=== PATIENT | male | born 1950 | race Caucasian/White ===

== ENCOUNTER → 2017-09-25 14:03 | Outpatient (CLI) | payer BC, SELFPAY ==
[2017-09-25 15:15] LABS: Hemoglobin A1C 8.3 % (4.5-6.2)
[2017-09-25 17:28] LABS: Cholesterol 100 mg/dL (50-200); HDL Cholesterol 41 mg/dL (40-60); LDL CHOLESTEROL 52 mg/dL (<100); TSH (W/Ref FT4) 2.77 uIU/mL (0.358-3.74); Triglyceride 51 mg/dL (30-150)
[2017-09-25 18:35] LABS: COMMENT (LAB VIEW ONLY) 90.34 mg/dL; Microalb ug/mg Crea 100.3 ug/mg Cr
== END ==
PROVIDERS: PCP Family Medicine; Visit Provider Family Medicine
DX: E10.65 Type 1 diabetes mellitus with hyperglycemia (principal); E10.8 Type 1 diabetes mellitus with unspecified complications; I10 Essential (primary) hypertension
CPT/HCPCS: 36415; 80061; 83721; 82043; 82570; 83036; 84443

== ENCOUNTER 2017-12-06 07:09 | Outpatient (CLI) | payer BC, SELFPAY ==
[2017-12-06 16:05] LABS: Cholesterol 102 mg/dL (50-200); HDL Cholesterol 39 mg/dL (40-60); LDL CHOLESTEROL 52 mg/dL (<100); Triglyceride 91 mg/dL (30-150)
== END 2017-12-06 07:29 ==
PROVIDERS: PCP Family Medicine; Visit Provider Family Medicine
DX: E10.65 Type 1 diabetes mellitus with hyperglycemia (principal); E78.5 Hyperlipidemia, unspecified
CPT/HCPCS: 36415; 80061; 83721; 83036

== ENCOUNTER 2018-03-28 14:25 | Emergency (ER) | payer BC, SELFPAY ==
[2018-03-28] VITALS (7 sets, daily range): BP systolic 139–164; BP diastolic 69–77; PULSE 79–98; RESP 16–18; TEMP 37.1–37.5; O2SAT 89–95
--- NOTE | 2018-03-28 15:04 | W.ED.GENAD ---
Discharge Plan Disposition Patient Disposition: HOME Condition: Good Discharge Details Chief Complaint: RespSymp Clinical Impression: Pneumonia Reason For Visit: cough after tx with tal coronel Primary Care Provider: Nelly Wilkins ED Provider: Hoang Tate Home Meds and New Rx's Prescriptions: New albuterol sulfate 90 mcg/actuation HFA aerosol inhaler 2 puff IH Q6H PRN (Reason: bronchospasm) Qty: 8 RF: 0 doxycycline hyclate 100 mg tablet 100 mg PO BID Qty: 20 RF: 0 No Action Humalog KwikPen Insulin 100 unit/mL insulin pen See Patient Comments subcut QPM RF: 0 aspirin [Aspirin Low-Strength] 81 MG tablet,chewable 1 tab PO DAILY RF: 0 acetaminophen 500 MG tablet 2 tab PO DAILY PRNRF: 0 pen needle, diabetic 1 EACH needle 1 ea Miscellaneous QID Qty: 360 RF: 12 desonide [DesOwen] 60 GM cream 1 aden Topical BID Qty: 60 RF: 12 ketoconazole 15 GM cream 2 - 4 gm Topical BID PRNQty: 1 RF: 3 syringe with cannula,disposabl [BD Blunt Plastic Cannula] 1 EACH syringe 1 ea Miscellaneous AC & HS Qty: 360 RF: 12 sildenafil [Viagra] 100 MG tablet 1 tab PO DAILY PRNQty: 24 RF: 12 lisinopril 5 MG tablet 1 tab PO DAILY Qty: 90 RF: 12 Humalog Mix 75-25 KwikPen 100 UNIT/1 ML insulin pen 50 units Sub-Q QAM Qty: 15 RF: 12 ONETOUCH ULTRA TEST STRIPS strip .ROUTE .MEDSUPPLY Qty: 1 RF: 12 blood-glucose meter misc .Route .MEDSUPPLY Qty: 1 RF: 0 blood-glucose sensor device .ROUTE .MEDSUPPLY Qty: 3 RF: 0 atorvastatin 40 mg tablet 40 mg PO DAILY Qty: 90 RF: 11 Lantus Solostar U-100 Insulin 100 unit/mL (3 mL) insulin pen 35 unit subcut BID Qty: 100 RF: 12 tamsulosin 0.4 mg capsule 0.4 mg PO DAILY Qty: 90 RF: 4 OneTouch Ultra Blue Test Strip strip .ROUTE .MEDSUPPLY Qty: 200 RF: 5 Discharge Instructions Instructions: Pneumonia (ED) Additional Instructions: Please take medication as directed. if you notice any worsening of your symptoms, or any new symptoms such as vomiting, diarrhea, fever, chills, shortness of breath, chest pain, numbness, weakness, or fainting , please return immediately to the emergency department for reevaluation. Please follow up with your primary care provider as soon as possible for reassessment and reevaluation. As always, it was a pleasure participating in your medical care today. Referrals: Nelly Wilkins MD, [place] [Primary Care Provider] - Discharge Data Discharge Date/Time-TO BE ENTERED AT DEPARTURE: 03/28/18 19:00 Medical Decision Making This is a pleasant 67-year-old male who presents for persistent cough over the last month. It is been productive with yellow sputum. He was recently started on azithromycin over a week ago and completed his course of this, unfortunately he had persistence of his symptoms. He denies any significant shortness of breath, exertional chest pain, or pleuritic chest pain. He does have mild pain occasionally with cough. No red flags of history of PE, or hemoptysis. Physical exam demonstrates minimal crackles in the right upper lung darling, however no calf tenderness, no wheezes or rhonchi, or other significant abnormalities. Vital signs are reassuring, and we did ambulate the patient. With ambulation his oxygen saturation maintained greater than 94%, there are no significant cardiac abnormalities otherwise. We will get a chest x-ray, and EKG, give the patient a breathing treatment and reassess. I do feel that he may require a change to a different broader antibiotic. 10:42 PM Patient's laboratory workup has returned demonstrates minimal white count elevation, no bandemia, electrolytes are benign. Renal function stable. Troponin within normal limits. EKG shows no significant acute findings. Chest x-ray does show evidence concerning for pneumonia. After breathing treatments patient is feeling somewhat better. Repeat ambulatory pulse ox continues to demonstrate normal oxygen saturations. With reassuring vital signs, no significant tachycardia, signs and symptoms clinically inconsistent with ACS, PE, dissection, I feel that his signs and symptoms are consistent with pneumonia especially in light of his chest x-ray. We will broaden his coverage to doxycycline, and hold off on floor quinolone use at this time secondary to his active lifestyle, and concern for tendon damage. We will give an inhaler for home use as this did notably and help his symptoms. I see no clinical indication at this time for admission to the hospital, and I feel he is safe for treatment on an outpatient basis. However we did discuss reasons to return promptly for I have extensively reviewed the treatment plan and discharge instructions with the patient and their family. I have addressed all patient concerns at this time. The patient and family was made aware of what symptoms to monitor for that would warrant a return to the emergency department. Discussed the plan with the patient and family, they demonstrate verbal understanding and agreement with our assessment and plan at this time. EKG 15: 40 Rate 109, sinus tachycardia, intervals normal, no significant ST elevations or depressions. There is evidence of Q waves in lead II, III, and aVF, however review of prior EKG from 2005 demonstrates the same and unchanged findings HPI General Date/Time Provider Initiated Documentation: 03/28/18 14:37. HPI Narrative: This is a pleasant 67-year-old male with a past medical history of diabetes, who presents today for evaluation of cough. He initially developed a cough 1 month ago, and was prescribed azithromycin roughly a week ago. He took this as directed but has had no improvement of his symptoms. He still has continued cough with productive yellow sputum. It slightly worsened yesterday. He does have a history of tobacco abuse in the past but quit years ago. He denies any chest pressure, arm neck or shoulder pain. He does admit to some mild chest pain only when coughing. He denies any pleuritic chest pain. Denies PE risk factors such as recent long car rides, immobilization, recent surgery, prior history of DVT or PE, family history of PE or DVT, morbid obesity, exogenous estrogen and smoking, hemoptysis, history of cancer. He denies any recent hospitalization, or other complaints. He denies any IV or illicit drug use. He denies any pertinent family history. Related Data Home Medications Medication Instructions Recorded Confirmed aspirin [Aspirin Low-Strength] 1 tab PO DAILY tab.chew 06/06/12 03/28/18 acetaminophen 2 tab PO DAILY PRN 06/14/12 03/28/18 pen needle, diabetic #360 ndl 07/30/14 01/02/18 desonide [DesOwen] 1 aden TOPICAL BID #60 gm 09/09/14 03/28/18 ketoconazole 2 - 4 gm TOPICAL BID PRN #1 tube 10/15/15 03/28/18 syringe with cannula,disposabl [BD #360 syringe 11/03/16 01/02/18 Blunt Plastic Cannula] sildenafil [Viagra] 1 tab PO DAILY PRN #24 tab-cap 11/15/16 03/28/18 lisinopril 1 tab PO DAILY #90 tab-cap 09/26/17 03/28/18 insulin lispro protamin-lispro 50 units SUB-Q QAM #15 pen 09/29/17 03/28/18 [Humalog Mix 75-25 Kwikpen] blood-glucose meter #1 each NS 12/10/17 01/02/18 blood-glucose sensor device #3 each NS 12/10/17 01/02/18 atorvastatin 40 mg tablet 40 mg PO DAILY #90 tab-cap 12/19/17 03/28/18 insulin lispro (U- 100) 100 See Rx Instructions SUBCUT QPM box 01/02/18 03/28/18 unit/mL subcutaneous pen insulin glargine (U-100) 100 35 unit SUBCUT BID #100 ml 01/04/18 03/28/18 unit/mL (3 mL) subcutaneous pen tamsulosin 0.4 mg capsule 0.4 mg PO DAILY #90 cap 02/02/18 03/28/18 blood sugar diagnostic strips #200 each 03/22/18 albuterol sulfate 2 puff IH Q6H PRN #8 gm 03/28/18 doxycycline hyclate 100 mg PO BID #20 tab 03/28/18 Previous Rx's Medication Instructions Recorded syringe with cannula,disposabl [BD #360 syringe 11/03/16 Blunt Plastic Cannula] lisinopril 1 tab PO DAILY #90 tab-cap 09/26/17 insulin lispro protamin-lispro 50 units SUB-Q QAM #15 pen 09/29/17 [Humalog Mix 75-25 Kwikpen] blood-glucose meter #1 each NS 12/10/17 blood-glucose sensor device #3 each NS 12/10/17 atorvastatin 40 mg tablet 40 mg PO DAILY #90 tab-cap 12/19/17 insulin glargine (U-100) 100 35 unit SUBCUT BID #100 ml 01/04/18 unit/mL (3 mL) subcutaneous pen tamsulosin 0.4 mg capsule 0.4 mg PO DAILY #90 cap 02/02/18 blood sugar diagnostic strips #200 each 03/22/18 albuterol sulfate 2 puff IH Q6H PRN #8 gm 03/28/18 doxycycline hyclate 100 mg PO BID #20 tab 03/28/18 Allergies Allergy/AdvReac Type Severity Reaction Status Date / Time No Known Allergies Allergy Unverified 03/28/18 14:37 General Stated Complaint: RespSymp JUAN: 3 Review of Systems Review of Systems All systems reviewed & are unremarkable except as noted in HPI and below PFSH Medical History Essential hypertension (Chronic 01/04/13) 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 Father No problems noted. Sister No problems noted. Brother Aneurysm Neoplasm Brother No problems noted. Brother No problems noted. Brother No problems noted. Grandfather No problems noted. Grandfather Heart disease Grandmother No problems noted. Grandmother No problems noted. Son No problems noted. Son No problems noted. Daughter No problems noted. Social History Smoking/Tobacco Use Status: Former Tobacco Use Exam Narrative Exam Narrative: 1.Const: Well-nourished, Well-developed, appearing stated age 2.Eyes: PERRL, no conjunctival injection, and symmetrical lids. 3.ENT: Atraumatic external nose and ears. Moist MM. Neck: Symmetric, trachea midline, No thyromegaly. 4.CVS: +S1/S2, No murmurs or gallops. Peripheral pulses 2+ and equal in all extremities. Brisk capillary refill in all extremities. 5.RESP: Unlabored respiratory effort. Clear to auscultation bilaterally except for a minimal crackle in the right upper lung field. No rhonchi or wheezes. 6.GI: Soft, Nontender/Nondistended, No hepatosplenomegaly. No guarding or rebound. 7.MSK: Normocephalic/Atraumatic, Extremities w/o deformity or ttp No cyanosis or clubbing, Normal movement of all extremities 8.Skin: Warm, Dry. No rashes or lesions. 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 Sensation grossly intact, no focal neurologic deficits. 10.Psych: (AAO) x3. Appropriate mood and affect Course Vital Signs Temperature 37.2 C 03/28/18 14:31 Pulse 90 03/28/18 14:31 Respiratory Rate 18 03/28/18 14:31 Blood Pressure 164/69 H 03/28/18 14:31 Pulse Oximetry 93 L 03/28/18 14:31 Temperature 37.2 C 03/28/18 14:31 Pulse 90 03/28/18 14:31 Respiratory Rate 18 03/28/18 14:31 Respiratory Effort 03/28/18 14:36 Blood Pressure 164/69 H 03/28/18 14:31 Pulse Oximetry 93 L 03/28/18 14:31 Oxygen Delivery Method Room Air 03/28/18 14:31 Oxygen Flow Rate 0 03/28/18 14:31 Comment 03/28/18 14:31
[2018-03-28] MEDS: Albuterol/Ipratropium 3 ML UPD VIAL UPD (15:10)
--- NOTE | 2018-03-28 16:22 | DI.RAD_ITS ---
SYMPTOMS/DIAGNOSIS: COUGH X 1 MONTH WITH PRODUCTIVE SPUTUM PA AND LATERAL CHEST: There are no prior comparison exams. The heart size is normal. The aorta is tortuous but normal in diameter. The lungs are suboptimally inflated, particularly on the lateral view. There is basilar atelectasis. No focal infiltrate is identified. IMPRESSION: Limited exam. No acute abnormality.
--- NOTE | 2018-03-28 16:27 | DI.VRAD_ITS ---
EXAM: XR Chest, 2 Views EXAM DATE/TIME: 03/28/2018 4:20 PM CLINICAL HISTORY: 67 years old, male; Signs and symptoms; Cough; Patient HX: 1 month cough w/prod sputum TECHNIQUE: XR of the chest, 2 views. COMPARISON: No relevant prior studies available. FINDINGS: Minimal patchy density within the left lung base consistent with small pneumonia given the proper clinical setting. Follow-up imaging until resolution of this abnormality is recommended as clinically warranted. The right lung is clear. The cardiomediastinal silhouette and pulmonary vasculature are within normal limits. No pleural effusion or pneumothorax identified. There are degenerative changes throughout the thoracic spine. IMPRESSION: Patchy density in the left lower lobe consistent with small pneumonia given the proper clinical setting. Follow-up imaging until resolution of this abnormality is recommended as clinically warranted. Dictated and Authenticated by: Chris Mac MD. Ordering:HANNA Bolton MD
[2018-03-28] MEDS: Acetaminophen 500 MG TAB (16:40)
[2018-03-28 17:27] LABS: Abs Immature Grans 0.03 k/cumm (0.0-0.09); Absolute Basophil Count 0.01 k/cumm (0.0-0.2); Absolute Eosinophil Count 0.01 k/cumm (0.0-0.7); Absolute Lymphocyte Count 0.64 k/cumm (1.2-3.4); Absolute Monocyte Count 0.98 k/cumm (0.11-0.7); Basophils % 0.1; Eosinophils % 0.1; HCT 48.5 % (40.0-50.0); HGB 16.2 g/dL (13.5-17.5); Immature Grans % 0.2; Lymphocytes % 4.9; Mean Corp. HGB Concentration 33.4 g/dL (32.0-36.0); Mean Corpuscular Hemoglobin 28.4 pg (27.0-33.0); Mean Corpuscular Volume 85.1 fL (80-95); Monocytes % 7.5; Neutrophils % 87.2; Platelet Count 161 x1000/uL (130-400); RBC Distribution Width 12.7 % (11.8-14.1)
[2018-03-28 17:29] LABS: Absolute Neutrophil Count 11.34 k/cumm (1.2-6.7)
[2018-03-28 17:43] LABS: ALT 24 U/L (12-78); AST 22 U/L (15-37); Albumin 3.3 g/dL (3.4-5.0); Alkaline Phosphatase 128 U/L (46-116); Anion Gap 9.9 mmol/L (3-11); BUN 18 mg/dL (7-18); Bilirubin, Total 1.3 mg/dL (0.2-1.0); CO2 25.1 mmol/L (21.0-32.0); Calcium 8.4 mg/dL (8.5-10.1); Chloride 97 mmol/L (98-107); Estimated GFR 54.73 (mL/min/1.73m2); Glucose 412 mg/dL (70-100); Potassium 4.7 mmol/L (3.5-5.1); Sodium 132 mmol/L (136-145); Total Protein 6.9 g/dL (6.4-8.2); Troponin I 0.03 ng/mL (0.00-0.06)
== END 2018-03-28 19:00 | disposition home or self-care (01) ==
PROVIDERS: Emergency Provider Student in an Organized Health Care Education/Training Program; PCP Family Medicine
DX: J18.9 Pneumonia, unspecified organism (principal); R00.0 Tachycardia, unspecified; Z87.891 Personal history of nicotine dependence
CPT/HCPCS: 36415; 36416; 80053; 82962; 87449; 93005; 94640; 99285; 71046; 84484; 85025; 93010; J7620

== ENCOUNTER 2018-04-06 11:59 | Outpatient (CLI) | payer BC, SELFPAY ==
[2018-04-06 14:09] LABS: Hemoglobin A1C 9.1 % (4.5-6.2)
== END 2018-04-06 12:19 ==
PROVIDERS: PCP Family Medicine; Visit Provider Family Medicine
DX: E10.65 Type 1 diabetes mellitus with hyperglycemia (principal)
CPT/HCPCS: 36415; 83036

== ENCOUNTER 2018-10-01 01:24 | Outpatient (CLI) | payer BC, MEDICARE, SELFPAY | END 2018-10-01 01:44 | PROVIDERS: PCP Family Medicine; Visit Provider Family Medicine | DX: E10.65 Type 1 diabetes mellitus with hyperglycemia (principal) | CPT/HCPCS: 36415; 83036 ==

== ENCOUNTER 2019-01-22 10:37 | Outpatient (CLI) | payer BC, SELFPAY ==
[2019-01-22 16:41] LABS: Hemoglobin A1C 9.5 % (4.5-6.2)
== END 2019-01-22 10:57 ==
PROVIDERS: PCP Family Medicine; Visit Provider Family Medicine
DX: E11.9 Type 2 diabetes mellitus without complications (principal)
CPT/HCPCS: 36415; 83036

== ENCOUNTER 2019-10-21 04:45 | Outpatient (CLI) | payer BC, SELFPAY ==
[2019-10-21 08:35] LABS: Hemoglobin A1C 9.2 % (<5.7)
[2019-10-21 08:48] LABS: ALT 25 U/L (16-63); AST 20 U/L (15-37); Albumin 3.7 g/dL (3.4-5.0); Alkaline Phosphatase 122 U/L (46-116); Anion Gap 8.5 mmol/L (3-11); BUN 20 mg/dL (7-18); Bilirubin, Total 1.2 mg/dL (0.2-1.0); CO2 26.5 mmol/L (21.0-32.0); CREATININE 1.19 mg/dL (0.70-1.30); Calcium 8.6 mg/dL (8.5-10.1); Calculated LDL 52 mg/dL (<100); Chloride 106 mmol/L (98-107); Cholesterol 111 mg/dL (<200); Glucose 195 mg/dL (74-106); HDL Cholesterol 44 mg/dL (40-60); Potassium 4.7 mmol/L (3.5-5.1); Sodium 141 mmol/L (136-145); Total Protein 6.4 g/dL (6.4-8.2); Triglyceride 76 mg/dL (<150)
[2019-10-21 18:28] LABS: COMMENT (LAB VIEW ONLY) 118.21 mg/dL
[2019-10-21 18:31] LABS: Microalb ug/mg Crea 119.6 ug/mg Cr
== END 2019-10-21 05:05 ==
PROVIDERS: PCP Family Medicine; Visit Provider Family Medicine
DX: E11.9 Type 2 diabetes mellitus without complications (principal)
CPT/HCPCS: 36415; 80053; 80061; 82043; 82570; 83036

== ENCOUNTER 2020-01-21 03:53 | Outpatient (CLI) | payer BC, SELFPAY ==
[2020-01-21 12:57] LABS: Hemoglobin A1C 9.2 % (<5.7)
== END 2020-01-21 04:13 ==
PROVIDERS: PCP Family Medicine; Visit Provider Family Medicine
DX: E11.9 Type 2 diabetes mellitus without complications (principal)
CPT/HCPCS: 36415; 83036

== ENCOUNTER 2020-04-20 04:34 | Outpatient (CLI) | payer BC, SELFPAY ==
[2020-04-20 12:00] LABS: Hemoglobin A1C 9.2 % (<5.7)
== END 2020-04-20 04:35 | disposition home or self-care (01) ==
LOC: LBO 04:34
PROVIDERS: PCP Family Medicine; Visit Provider Family Medicine
DX: E11.9 Type 2 diabetes mellitus without complications (principal)
CPT/HCPCS: 36415; 83036

== ENCOUNTER 2020-09-07 07:20 | Day surgery (SDC) | payer BC, SELFPAY ==
--- NOTE | 2020-09-07 06:17 | ANES.PREOP_ITS ---
General Info Date of Service Date Performed: 09/07/20 Height: 5 ft 7 in Weight: 104 kg Body Mass Index (BMI): 35.9 Surgical Procedure: Operation Date: 09/07/20 09:40 Proposed Procedures Side Surgeon p Cataract Extraction with IOL Implant Right Zachary Cornejo MD Meds Allergies and Home Medications Allergies Allergy/AdvReac Type Severity Reaction Status Date / Time No Known Allergies Allergy Verified 09/07/20 07:47 Home Medication Medication Instructions Recorded aspirin [Aspirin Low-Strength] 1 tab PO DAILY tab.chew 06/06/12 acetaminophen 2 tab PO DAILY PRN 06/14/12 pen needle, diabetic #360 ndl 07/30/14 BD Blunt Plastic Cannula #360 syringe 11/03/16 sildenafil [Viagra] 1 tab PO DAILY PRN #24 tab-cap 11/15/16 blood-glucose meter #1 each NS 12/10/17 blood-glucose sensor #3 each NS 12/10/17 desonide 0.05 % topical cream 1 applic TOPICAL BID PRN #60 gm 04/09/18 ketoconazole 2 % topical cream 1 applic TOPICAL BID PRN #3 tube 05/01/18 albuterol sulfate 90 mcg/actuation 2 puff IH Q6H PRN #3 unit 03/20/19 aerosol inhaler hydrocortisone 2.5 % topical cream 1 applic TP DAILY PRN gm 05/23/19 insulin lispro protamine-lispro See Rx Instructions SUB-Q BID #90 10/24/19 100 unit/mL (75-25) subcutaneous ml MDD 70 pen blood sugar diagnostic #400 each 03/26/20 insulin glargine 100 unit/mL (3 65 unit SUBCUT BID #165 ml 04/20/20 mL) subcutaneous pen lisinopril 10 mg tablet 10 mg PO DAILY #90 tab-cap 04/20/20 atorvastatin 40 mg tablet 40 mg PO DAILY #90 tab-cap 07/28/20 insulin lispro 100 unit/mL 40 unit SUBCUT QPM #60 ml 07/28/20 subcutaneous pen omeprazole 20 mg PO PRN PRN 09/07/20 Current Visit Medications: Current Medications Generic Name Dose Route Start Last Admin Trade Name Freq PRN Reason Stop Dose Admin Acetaminophen 1,000 mg 09/07/20 06:00 Acetaminophen 500 Mg Tab PO Q4H PRN PRN Miscellaneous Medication 0 ml 09/07/20 06:00 Prednisolone 1%, Moxifloxacin 0.5%, Nepafenac 0.1% 5ml Btl OD DIRECTED [facility] Miscellaneous Medication 0 ml 09/07/20 06:00 Tropicam./Phenyleph. (1/2.5%) 5 Ml Btl OD DIRECTED [facility] Tetracaine HCl 0 ml 09/07/20 06:00 Tetracaine 0.5% 4 Ml Btl OD DIRECTED [facility] PFSH Active Problems Active Problems: Problem Status Onset Code Posterior subcapsular age-related cataract, right eye H25.041 Nuclear sclerotic cataract of right eye H25.11 Cortical cataract of right eye H26.9 Toenail deformity L60.8 Incontinence 09/09/14 R32 Essential hypertension 01/04/13 I10 DM retinopathy 02/10/14 E11.319 DM complication NOS type I, uncontrolled 02/10/14 E10.8, E10.65 Cataract, right eye 03/18/16 H26.9 Carpal tunnel syndrome 04/23/13 G56.00 Benign prostatic hyperplasia with urinary obstruction N40.1, N13.8 Arthritis of both hips 07/31/17 M16.0 Actinic keratosis L57.0 Medical History Medical History Acquired skin tag Actinic keratosis left facial Arthritis of both hips (07/31/17) Benign prostatic hyperplasia with urinary obstruction Bilateral inguinal hernia Carpal tunnel syndrome (04/23/13) positive emg Cataract, right eye (03/18/16) DM (diabetes mellitus) DM complication NOS type I, uncontrolled (02/10/14) DM retinopathy (02/10/14) 02/10/14 ;r eye 02/26/14OPTICAL EXPRESSIONS; SOME MACULAR EDEMA OD; REFERRAL TO DR. DOUGLAS AT [facility] [place]. 03[facility]18/16[facility] LEFT EYE SOME RETINPATHY Essential (primary) hypertension Essential hypertension (01/04/13) Hydronephrosis determined by ultrasound (07/31/15) Pneumonia Sad mood (11/10/15) Surgical History Surgical History Colonoscopy - MAC (~2005) Colonoscopy - MAC (12/09/16) Cystoscopy 4/19/18 EYE SURGERY (~2004) left eye laser surgery by Dr. Thornton @ [facility] [place] History of eye surgery Status post tonsillectomy and adenoidectomy Tonsillectomy and adenoidectomy Transurethral prostatectomy 06/08/17 Tobacco Smoking/Tobacco Use Status: Former Tobacco Use Tobacco: How many years used: 15 Passive smoking exposure: Yes Alcohol Alcohol Intake: current Alcohol intake frequency: 0-2 drinks per day Alcohol type: beer and hard liquor Substance Use Substance use: Never Substance use type: does not use Vital Signs and Lab Results Vital Signs Most Recent Vital Signs in EMR: Temp Pulse Resp BP Pulse Ox 36.5 C 61 18 149/81 H 97 09/07/20 07:55 09/07/20 07:55 09/07/20 07:55 09/07/20 07:55 09/07/20 07:55 Lab Results Blood Type / Crossmatch: No Data to Display Complete Blood Count: No Data to Display Complete Metabolic Panel: No Data to Display Liver Function Panel: No Data to Display Coagulation Panel: No Data to Display Cardiac Panel: No Data to Display Arterial Blood Gas: No Data to Display Venous Blood Gas: No Data to Display Pancreas Panel: No Data to Display Thyroid Panel: No Data to Display Infectious Disease: No Data to Display Blood Cultures: No Data to Display Toxicology Panel: No Data to Display Imaging and Studies Imaging and Studies Stress Test Summary: 2013: negative for ischemia, normal perfusion. Echocardiogram Summary: 2013: normal biV function. LVEF 65%, ? stage 1 diastolic dysfunction. aortic sclerosis. Anesthesia Assessment and Plan Anesthesia History Personal History: No History of Anesthesia Complications Family History: No Family History of Anesthesia Complications Exercise Tolerance Exercise Tolerance: Metabolic Equivalents>4 Cardiac & Pulmonary Exam Cardiac Exam: Normal S1/S2 Heart Sounds Pulmonary Exam: Clear Bilateral Breath Sounds Airway Exam Known Difficult Airway: No Mallampati Class: 1 Mouth Opening: Normal (> 3cm) Thyromental Distance: Greater than 3 cm Neck Range of Motion: Full ROM Neck Circumference: Normal Teeth Condition: Normal Dentition ASA Classification ASA Score: ASA 2 Emergency Case?: No NPO Status NPO Status: NPO Clears >2 hours, Solids >8 hours Anesthesia Plan Resuscitation Status: Full Code Anesthesia Technique: MAC Anesthesia Airway Planned: Natural Airway Monitors Used: Standard Monitors Preoperative Comments:: 70 y male for cataract removal. previous colo without issue. TURP with failed LMA 4 -[address] with glide grade 1
[2020-09-07] MEDS: Tropicam./Phenyleph. (1/2.5%) 5 ML BTL OD ×3 (07:41→07:59)
[2020-09-07 07:55] VITALS: BP 149/81; PULSE 61; RESP 18; TEMP 36.5; O2SAT 97
[2020-09-07 08:18] VITALS: BMI 35.9
[2020-09-07] MEDS: Tetracaine 0.5% 4 ML BTL OD (08:51)
[2020-09-07] MEDS: Lidocaine 2% Jelly 6 ML SYR (08:52)
[2020-09-07] MEDS: Lidocaine 1% Pres-Free 5 ML VIAL (08:52)
--- NOTE | 2020-09-07 08:58 | W.ANESPOSTOP ---
Postoperative Evaluation Date, Time and Location Date Performed: 09/07/20 Time Performed: 09:55 Patient Location: Day Surgery Unit Vital Signs Most Recent Imported Vital Signs: Most Recent Vital Signs Temp Pulse Resp BP Pulse Ox 36.5 C 61 18 149/81 H 97 09/07/20 07:55 09/07/20 07:55 09/07/20 07:55 09/07/20 07:55 09/07/20 07:55 Most Recent Manually Entered Vital Signs: Adult Blood Pressure: 139/74 Heart Rate: 61 Respirations: 16 Oxygen Saturation (%): 96 Temperature (C): 36.9 C Pain Score (0-10 Scale): 0 Pain Score Most Recent Pain Score: Most Recent Pain Score Pain Level 0 09/07/20 07:55 Assessment Mental Status: Awake (Alert & Oriented to Patient Baseline) Airway and Respiratory Function: Patent airway with normal (patient baseline) respiratory exam Cardiovascular Function: Hemodynamically Stable Hydration Status: Adequately Hydrated Nausea & Vomiting: No Nausea or Vomiting Pain: Pt. Denies Any Pain Peripheral Nerve Block: Patient did not receive a nerve block
[2020-09-07] MEDS: Duovisc Viscoelastic System EACH 1 EACH (08:59)
[2020-09-07] MEDS: Balanced Salt Soln.-PLUS 500 ML BAG (09:04)
[2020-09-07] MEDS: Povidone-Iodine Ophth 30 ML BTL (09:08)
[2020-09-07] MEDS: Triamcinolone 40 MG/ML VIAL (09:09)
--- NOTE | 2020-09-07 09:24 | W.PM.OP ---
Date of service: 09/07/20 Time of Service: 09:24 Operative Note Operative Note DATE OF PROCEDURE: 09/07/20 PRE-OP DIAGNOSIS: Nuclear/cortical/posterior subcapsular cataract, right eye Diabetic macular edema, right eye POST-OP DIAGNOSIS: same PROCEDURE: Cataract extraction using phacoemulsification with intraocular lens implant, right eye SURGEON: Zachary Cornejo ANESTHESIA TYPE: Local By Surgeon and MAC Refer to Anesthesia Record ESTIMATED BLOOD LOSS: 0 PATHOLOGY: none sent COMPLICATIONS: None Patient was transported to: same day Patient's condition: stable Implants: Braxton Clareon [id number] Indications: Progressive decreased vision due to cataract, right eye Procedure Description: CATARACT SURGERY OPERATIVE REPORT PREOPERATIVE DIAGNOSIS: Nuclear/cortical/posterior subcapsular cataract, right eye POSTOPERATIVE DIAGNOSIS: Same OPERATION: Cataract extraction using phacoemulsification with posterior chamber intraocular lens implant, right eye. IOL: IOL Boardinghouse Keeper/Model: Braxton Clareon [id number] IOL Power: + 21.0 diopters IOL Serial Number: [id number] Optic Diameter: 6.0mm Haptic/Overall Diameter: 13.0mm PHACO INFO: Braxton [employer] Vision System with OZil and Active Fluidics Cumulative Dispersed Energy (CDE): 11.08 seconds SURGEON: Zachary Cornejo MD, JAZMIN ANESTHESIA: Monitored Anesthesia Care (MAC), with local sub-tenon's anesthetic infiltration COMPLICATIONS: None SPECIMENS: None INDICATIONS FOR PROCEDURE: The patient is a 70-year-old gentleman with history of diminished visual acuity in his right eyes secondary to the development of nuclear/cortical/posterior subcapsular cataract. He has a history of diabetes with diabetic macular edema. The option of cataract surgery was offered to the patient and he wished to proceed. He understands that postoperative visual acuity will be limited by the presence of his pre-existing maculopathy. PROCEDURE: The correct surgical eye was identified and marked as the right eye and the pupil was dilated in the preoperative area using mydriatics and cycloplegics. The dilated pupil size was 6.0 mm. He elected to proceed without oral sedation. The patient was brought to the operating room where cardiopulmonary monitoring was instituted and surgical time-out was performed, confirming the correct operative eye and IOL power. Topical anesthesia was administered and ophthalmic povidone-iodine 5% was instilled into the conjunctival fornices. Lidocaine gel was applied to the cornea and the chiara-ocular area was prepped with Betadine 10% solution and draped in the usual sterile fashion for intraocular surgery, including an aperture drape. A Tegaderm transparent film dressing was cut in half and used to cover the lashes and lid margins. Care was taken to sequester the lashes and lid margins under the Tegaderm dressing. A lid speculum was placed between the lids of the operative eye and the Mary-Elsie operating microscope was maneuvered into position. Bradley scissors were then used to make a conjunctival buttonhole approximately 6mm posterior to the limbus in the inferonasal quadrant. Blunt dissection was carried out to expose bare sclera, and a blunt-tipped sub-tenon?s anesthesia cannula was introduced and passed posteriorly along the globe where non-preserved plain lidocaine was injected into posterior sub-Tenon?s space. A sideport knife was used to make a paracentesis port inferiortemporally. Intraocular phenylephrine/lidocaine was injected into the anterior chamber. The anterior chamber was then filled with viscoelastic. A 2.4mm keratome knife was used to create a half-thickness groove at the limbus and then to construct a three-plane near-clear corneal tunnel extending 2.0mm into clear cornea in the superiortemporal position. . A flap was raised on the anterior capsule and capsulorhexis forceps were used to complete a continuous curvilinear capsulorhexis of 5.0mm. Moderate zonular laxity was noted. Balanced salt solution was then used to perform cortical cleaving hydrodissection and nuclear hydrodelineation until the lens could be freely rotated within the capsular bag. The lens nucleus was then disassembled and removed within the capsular bag and iris plane using phacoemulsification. Residual cortical material was removed using the I/A handpiece. The posterior capsule was carefully polished to remove as much residual lens epithelial cells as safely possible. The capsular bag was then inflated and the anterior chamber deepened with viscoelastic. The lens implant described above was inserted into the capsular bag using the Braxton Autonome Injector. A Kuglen hook was used to dial the IOL into position. Residual viscoelastic was then removed first from posterior to the IOL, then from the anterior chamber using the I/A handpiece. The lens implant was noted to center nicely within the capsular bag. The incisions were stromally hydrated, and the anterior chamber was reformed using BSS. Then 0.5cc of moxifloxacin 1.0mg/ml were injected into the capsular bag and anterior chamber. The incisions were checked with a Weck spear and found to be secure. At the conclusion of the procedure, Kenalog 20 mg in 0.5 cc were injected into posterior sub-tenon's space inferior nasally using the sub-tenon's injection cannula. Several drops of ophthalmic povidone-iodine 5% were then applied to the eye followed by two drops of Imprimis combination prednisolone/moxifloxacin/nepafenac solution. The drapes were removed and a clear plastic protective eye shield was placed over the eye. The patient was then returned to Same Day Surgery in stable condition.
[2020-09-07 09:30] VITALS: BP 172/84; PULSE 57; RESP 20; TEMP 36.1; O2SAT 97
[2020-09-07 09:37] VITALS: BP 139/74; PULSE 61; RESP 16; TEMP 36.9; O2SAT 96
[2020-09-07 09:55] VITALS: BP 139/74; PULSE 61; RESP 16; TEMPC 36.9; O2SAT 96
== END 2020-09-07 09:48 | disposition home or self-care (01) ==
LOC: SUR 07:21
PROVIDERS: PCP Family Medicine; Visit Provider Ophthalmology
PROC: (CPT 66984; principal; 2020-09-07 09:30)
DX: H25.11 Age-related nuclear cataract, right eye (principal); I10 Essential (primary) hypertension; E10.319 Type 1 diabetes mellitus with unspecified diabetic retinopathy without macular edema
CPT/HCPCS: 66984; V2632

== ENCOUNTER 2020-09-21 09:19 | Day surgery (SDC) | payer BC, SELFPAY ==
[2020-09-21] MEDS: Tropicam./Phenyleph. (1/2.5%) 5 ML BTL OS ×3 (10:00→10:11)
[2020-09-21 10:01] VITALS: BP 157/88; PULSE 65; RESP 16; TEMP 36.6; O2SAT 96
--- NOTE | 2020-09-21 10:43 | W.ANESPRE ---
General Info Date of Service Date Performed: 09/21/20 Height: 5 ft 7 in Weight: 102.1 kg Body Mass Index (BMI): 35.2 Surgical Procedure: Operation Date: 09/21/20 12:40 Proposed Procedures Side Surgeon p Cataract Extraction with IOL Implant Left Zachary Cornejo MD Meds Allergies and Home Medications Allergies Allergy/AdvReac Type Severity Reaction Status Date / Time No Known Allergies Allergy Verified 09/21/20 09:57 Home Medication Medication Instructions Recorded aspirin [Aspirin Low-Strength] 1 tab PO DAILY tab.chew 06/06/12 acetaminophen 2 tab PO DAILY PRN 06/14/12 pen needle, diabetic #360 ndl 07/30/14 BD Blunt Plastic Cannula #360 syringe 11/03/16 sildenafil [Viagra] 1 tab PO DAILY PRN #24 tab-cap 11/15/16 blood-glucose meter #1 each NS 12/10/17 blood-glucose sensor #3 each NS 12/10/17 desonide 0.05 % topical cream 1 applic TOPICAL BID PRN #60 gm 04/09/18 ketoconazole 2 % topical cream 1 applic TOPICAL BID PRN #3 tube 05/01/18 albuterol sulfate 90 mcg/actuation 2 puff IH Q6H PRN #3 unit 03/20/19 aerosol inhaler hydrocortisone 2.5 % topical cream 1 applic TP DAILY PRN gm 05/23/19 blood sugar diagnostic #400 each 03/26/20 insulin glargine 100 unit/mL (3 65 unit SUBCUT BID #165 ml 04/20/20 mL) subcutaneous pen lisinopril 10 mg tablet 10 mg PO DAILY #90 tab-cap 04/20/20 atorvastatin 40 mg tablet 40 mg PO DAILY #90 tab-cap 07/28/20 insulin lispro 100 unit/mL 40 unit SUBCUT QPM #60 ml 07/28/20 subcutaneous pen omeprazole 20 mg PO PRN PRN 09/07/20 insulin lispro protamine-lispro See Rx Instructions SUB-Q BID #90 09/08/20 100 unit/mL (75-25) subcutaneous ml MDD 70 pen Current Visit Medications: Current Medications Generic Name Dose Route Start Last Admin Trade Name Freq PRN Reason Stop Dose Admin Acetaminophen 1,000 mg 09/21/20 06:00 Acetaminophen 500 Mg Tab PO Q4H PRN PRN Miscellaneous Medication 0 ml 09/21/20 06:00 Prednisolone 1%, Moxifloxacin 0.5%, Nepafenac 0.1% 5ml Btl OS DIRECTED ABELARDO Miscellaneous Medication 0 ml 09/21/20 06:00 09/21/20 10:11 Tropicam./Phenyleph. 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/10/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.319 DM complication NOS type I, uncontrolled 02/10/14 E10.8, E10.65 Cataract, right eye 03/18/16 H26.9 Carpal tunnel syndrome 04/23/13 G56.00 Benign prostatic hyperplasia with urinary obstruction N40.1, N13.8 Arthritis of both hips 07/31/17 M16.0 Actinic keratosis L57.0 Medical History Medical History Acquired skin tag Actinic keratosis left facial Arthritis of both hips (07/31/17) Benign prostatic hyperplasia with urinary obstruction Bilateral inguinal hernia Carpal tunnel syndrome (04/23/13) positive emg Cataract, right eye (03/18/16) DM (diabetes mellitus) DM complication NOS type I, uncontrolled (02/10/14) DM retinopathy (02/10/14) 02/10/14 ;r eye 02/26/14OPTICAL EXPRESSIONS; SOME MACULAR EDEMA OD; REFERRAL TO DR. DOUGLAS AT [facility] [place]. 03/18/16; [facility]; LEFT EYE SOME RETINPATHY Essential (primary) hypertension Essential hypertension (01/04/13) Hydronephrosis determined by ultrasound (07/31/15) Pneumonia Sad mood (11/10/15) Surgical History Surgical History Colonoscopy - MAC (~2005) Colonoscopy - MAC (12/09/16) Cystoscopy 06/08/17 EYE SURGERY (~2004) left eye laser surgery by Dr. Thornton @ [facility] [place] History of cataract surgery History of eye surgery Status post tonsillectomy and adenoidectomy Tonsillectomy and adenoidectomy Transurethral prostatectomy 06/08/17 Tobacco Smoking/Tobacco Use Status: Former Tobacco Use Tobacco: How many years used: 15 Passive smoking exposure: Yes Alcohol Alcohol Intake: current Alcohol intake frequency: 0-2 drinks per day Alcohol type: beer and hard liquor Substance Use Substance use: Never Substance use type: does not use Vital Signs and Lab Results Vital Signs Most Recent Vital Signs in EMR: Most Recent Vital Signs Temp Pulse Resp BP Pulse Ox 36.6 C 65 16 157/88 H 96 09/21/20 10:01 09/21/20 10:01 09/21/20 10:01 09/21/20 10:01 09/21/20 10:01 Lab Results Blood Type / Crossmatch: No Data to Display Complete Blood Count: No Data to Display Complete Metabolic Panel: No Data to Display Liver Function Panel: No Data to Display Coagulation Panel: No Data to Display Cardiac Panel: No Data to Display Arterial Blood Gas: No Data to Display Venous Blood Gas: No Data to Display Pancreas Panel: No Data to Display Thyroid Panel: No Data to Display Infectious Disease: No Data to Display Blood Cultures: No Data to Display Toxicology Panel: No Data to Display Imaging and Studies Imaging and Studies Stress Test Summary: 2013: negative for ischemia, normal perfusion. Echocardiogram Summary: 2013: normal biV function. LVEF 65%, ? stage 1 diastolic dysfunction. aortic sclerosis. Anesthesia Assessment and Plan Anesthesia History Personal History: No History of Anesthesia Complications Family History: No Family History of Anesthesia Complications Exercise Tolerance Exercise Tolerance: Metabolic Equivalents>4 Pertinent Negatives Pertinent Negatives: No Major Cardiovascular Symptoms or Complaints and No Major Pulmonary Symptoms or Complaints Cardiac & Pulmonary Exam Cardiac Exam: Normal S1/S2 Heart Sounds Pulmonary Exam: Clear Bilateral Breath Sounds Airway Exam Known Difficult Airway: No Mallampati Class: 1 Mouth Opening: Normal (> 3cm) Thyromental Distance: Greater than 3 cm Neck Range of Motion: Full ROM Neck Circumference: Normal Teeth Condition: Normal Dentition ASA Classification ASA Score: ASA 2 Emergency Case?: No NPO Status NPO Status: NPO Clears >2 hours, Solids >8 hours Anesthesia Plan Resuscitation Status: Full Code Anesthesia Technique: MAC Anesthesia Airway Planned: Natural Airway Monitors Used: Standard Monitors Preoperative Comments:: 70 y male for cataract removal. previous colo without issue. TURP with failed LMA 4 -[address] with glide grade 1
[2020-09-21 10:44] VITALS: BMI 35.2
[2020-09-21] MEDS: Tetracaine 0.5% 4 ML BTL OS (11:06)
[2020-09-21] MEDS: Lidocaine 2% Jelly 6 ML SYR (11:07)
[2020-09-21] MEDS: Povidone-Iodine Ophth 30 ML BTL ×2 (11:07→11:34)
[2020-09-21] MEDS: Balanced Salt Soln.-PLUS 500 ML BAG (11:14)
[2020-09-21] MEDS: Lidocaine 1% Pres-Free 5 ML VIAL (11:14)
[2020-09-21] MEDS: Duovisc Viscoelastic System EACH 1 EACH (11:15)
[2020-09-21] MEDS: Triamcinolone 40 MG/ML VIAL (11:34)
[2020-09-21 11:38] VITALS: BP 143/71; PULSE 72; RESP 16; TEMP 36.2; O2SAT 94
--- NOTE | 2020-09-21 11:45 | W.ANESPOSTOP ---
Postoperative Evaluation Date, Time and Location Date Performed: 09/21/20 Time Performed: 11:45 Patient Location: Day Surgery Unit Vital Signs Most Recent Imported Vital Signs: Most Recent Vital Signs Temp Pulse Resp BP Pulse Ox 36.6 C 65 16 157/88 H 96 09/21/20 10:01 09/21/20 10:09/21/20 10:09/21/20 10:01 09/21/20 10:01 Most Recent Manually Entered Vital Signs: Adult Blood Pressure: 143/71 Heart Rate: 72 Respirations: 12 Oxygen Saturation (%): 94 Temperature (C): 36.2 C Pain Score (0-10 Scale): 0 Pain Score Most Recent Pain Score: Most Recent Pain Score Pain Level 0 09/21/20 10:01 Assessment Mental Status: Awake (Alert & Oriented to Patient Baseline) Airway and Respiratory Function: Patent airway with normal (patient baseline) respiratory exam Cardiovascular Function: Hemodynamically Stable Hydration Status: Adequately Hydrated Nausea & Vomiting: No Nausea or Vomiting Pain: Pt. Denies Any Pain Peripheral Nerve Block: Patient did not receive a nerve block
[2020-09-21 11:46] VITALS: BP 143/71; PULSE 72; RESP 12; TEMPC 36.2; O2SAT 94
--- NOTE | 2020-09-21 12:24 | W.PM.DSUDISC ---
Discharge Plan Disposition Patient Disposition: HOME Condition: Good Discharge Details Attending Provider: Zachary Cornejo Primary Care Provider: Nelly Wilkins Home Meds and New Rx's Prescriptions: No Action Lantus Solostar U-100 Insulin 100 unit/mL (3 mL) insulin pen 65 unit subcut BID Qty: 165 RF: 12 lisinopril 10 mg tablet 10 mg PO DAILY Qty: 90 RF: 12 Hold Instructions: Home Medication placed on hold at Doctor's office atorvastatin 40 mg tablet 40 mg PO DAILY Qty: 90 RF: 11 insulin lispro [Humalog KwikPen Insulin] 100 unit/mL insulin pen 40 unit subcut QPM Qty: 60 RF: 5 hydrocortisone 2.5 % cream 1 applic TP DAILY PRNRF: 0 aspirin [Aspirin Low-Strength] 81 MG tablet,chewable 1 tab PO DAILY RF: 0 acetaminophen 500 MG tablet 2 tab PO DAILY PRNRF: 0 (DME) pen needle, diabetic 1 EACH needle 1 ea Miscellaneous QID Qty: 360 RF: 12 (DME) BD Blunt Plastic Cannula 1 EACH syringe 1 ea Miscellaneous AC & HS Qty: 360 RF: 12 sildenafil [Viagra] 100 MG tablet 1 tab PO DAILY PRNQty: 24 RF: 12 (DME) ONETOUCH ULTRA TEST STRIPS strip 0 .Route .MEDSUPPLY Qty: 1 RF: 12 (DME) blood-glucose meter misc See Dose Instructions .Route .MEDSUPPLY Qty: 1 RF: 0 (DME) blood-glucose sensor device See Dose Instructions .ROUTE .MEDSUPPLY Qty: 3 RF: 0 desonide [DesOwen] 0.05 % cream 1 applic Topical BID PRNQty: 60 RF: 12 ketoconazole 2 % cream 1 applic Topical BID PRN (Reason: fungal infection) Qty: 3 RF: 0 albuterol sulfate 90 mcg/actuation HFA aerosol inhaler 2 puff IH Q6H PRN (Reason: bronchospasm) Qty: 3 RF: 3 (DME) OneTouch Ultra Blue Test Strip Strip See Dose Instructions .ROUTE .MEDSUPPLY Qty: 400 RF: 5 insulin lispro protamin-lispro [Humalog Mix 75-25 KwikPen] 100 unit/mL (75-25) insulin pen See Rx Instructions Sub-Q BID MDD 70 Qty: 90 RF: 4 omeprazole 20 mg tablet,delayed release (DR/EC) 20 mg PO PRN PRNRF: 0 Discharge Instructions Stand Alone Forms: Post-op Topical Cataract, Nikki Munoz (DSU) Discharge Orders Discharge Orders: Discharge Order (Routine); Ordered 09/21/20 Ordered By: Zachary Cornejo DS: Diagnosis Discharge Diagnosis (1) Nuclear sclerotic cataract of left eye: Status: Resolved (2) Cortical cataract of left eye: Status: Resolved (3) Posterior subcapsular age-related cataract of left eye: Status: Resolved
--- NOTE | 2020-09-21 12:26 | ROE_ITS ---
Date of service: 09/21/20 Time of Service: 12:26 Operative Note Operative Note DATE OF PROCEDURE: 09/21/20 PRE-OP DIAGNOSIS: Nuclear/cortical/posterior subcapsular cataract, left eye POST-OP DIAGNOSIS: same PROCEDURE: Cataract extraction using phacoemulsification with intraocular lens implant, left eye SURGEON: Zachary Cornejo ANESTHESIA TYPE: Local By Surgeon and MAC Refer to Anesthesia Record PATHOLOGY: none sent COMPLICATIONS: None Patient was transported to: same day Patient's condition: stable Implants: Braxton Clareon [id number] Indications: Progressive decreased vision due to cataract, left eye Procedure Description: CATARACT SURGERY OPERATIVE REPORT PREOPERATIVE DIAGNOSIS: Nuclear/cortical/posterior subcapsular cataract, left eye POSTOPERATIVE DIAGNOSIS: Same OPERATION: Cataract extraction using phacoemulsification with posterior chamber intraocular lens implant, left eye. IOL: IOL Inspector Soldering/Model: Braxton Clareon [id number] IOL Power: + 21.0 diopters IOL Serial Number: [id number] Optic Diameter: 6.0mm Haptic/Overall Diameter: 13.0mm PHACO INFO: Braxton [employer]ion Vision System with OZil and Active Fluidics Cumulative Dispersed Energy (CDE): 10.62 seconds SURGEON: Zachary Cornejo MD, JAZMIN ANESTHESIA: Monitored Anesthesia Care (MAC), with local sub-tenon's anesthetic infiltration COMPLICATIONS: None SPECIMENS: None INDICATIONS FOR PROCEDURE: The patient is a 70-year-old gentleman with history of diminished visual acuity in both eyes secondary to the development of significant nuclear/cortical/posterior subcapsular cataract in the left eye. He has a history of significant diabetic retinopathy and has undergone panretinal laser photocoagulation in both eyes. He also has bilateral epiretinal membranes associated with some macular thickening in both eyes. He has already undergone cataract surgery in the right eye, and now presents for cataract surgery in the left eye. PROCEDURE: The correct surgical eye was identified and marked as the left eye and the pupil was dilated in the preoperative area using mydriatics and cycloplegics. The dilated pupil size was 6.0 mm. He elected to proceed without oral sedation.. The patient was brought to the operating room where cardiopulm onary monitoring was instituted and surgical time-out was performed, confirming the correct operative eye and IOL power. Topical anesthesia was administered and ophthalmic povidone-iodine 5% was ins tilled into the conjunctival fornices. Lidocaine gel was applied to the cornea and the chiara-ocular area was prepped with Betadine 10% solution and draped in the usual sterile fashion for intraocular surgery, including an aperture drape. A Tegaderm transparent film dressing was cut in half and used to cover the lashes and lid margins. Care was taken to sequester the lashes and lid margins under the Tegaderm dressing. A lid speculum was placed between the lids of the operative eye and the Mary-Elsie operating microscope was maneuvered into position. Bradley scissors were then used to make a conjunctival buttonhole approximately 6mm posterior to the limbus in the inferonasal quadrant. Blunt dissection was carried out to expose bare sclera, and a blunt-tipped sub-tenon?s anesthesia can nula was introduced and passed posteriorly along the globe where non-preserved plain lidocaine was injected into posterior sub-Tenon?s space. A sideport knife was used to make a paracentesis port superior/superiortemporally. Intraocular phenylephrine/lidocaine was injected into the anterior chamber. The anterior chamber was then filled with viscoelastic. A 2.4mm keratome knife was used to create a half-thickness groove at the limbus and then to construct a three-plane near-clear corneal tunnel extending 2.0mm into clear cornea in the temporal position. . A flap was raised on the anterior capsule and capsulorhexis forceps were used to complete a continuous curvilinear capsulorhexis of 5.0 mm. Balanced salt solution was then used to perform cortical cleaving hydrodissection and nuclear hydrodelineation until the lens could be freely rotated within the capsular bag. The lens nucleus was then disassembled and removed within the capsular bag and iris plane using phacoemulsification. Re sidual cortical material was removed using the 45-degree angled silicone I/A tip with 0.3mm port. The posterior capsule was carefully polished to remove as much residual lens epithelial cells as safely possible. There was some residual posterior subcapsular plaque that could not be easily removed. The capsular bag was then inflated and the anterior chamber deepened with viscoelastic. The lens implant described above was inserted into the capsular bag using the Braxton Autonome Injector. A Kuglen hook was used to dial the IOL into position. Residual viscoelastic was then removed first from posterior to the IOL, then from the anterior chamber using the I/A handpiece. The lens implant was noted to center nicely within the capsular bag. The incisions were stromally hydrated, and the anterior chamber was reformed using BSS. Then 0.5cc of moxifloxacin 1.0mg/ml were injected into the capsular bag and anterior chamber. The incisions were checked with a Weck spear and found to be secure. At the conclusion of the procedure, Kenalog 20 mg in 0.5 cc was injected into posterior sub-tenon's space using the sub-tenon's anesthesia injection cannula. Several drops of ophthalmic povidone-iodine 5% were then applied to the eye followed by two drops of Imprimis combination prednisolone/moxifloxacin/nepafenac solution. The drapes were removed and a clear plastic protective eye shield was placed over the eye. The patient was then returned to Same Day Surgery in stable condition.
== END 2020-09-21 12:18 | disposition home or self-care (01) ==
PROVIDERS: PCP Family Medicine; Visit Provider Ophthalmology
PROC: (CPT 66984; principal; 2020-09-21 12:30)
DX: H25.042 Posterior subcapsular polar age-related cataract, left eye (principal); I10 Essential (primary) hypertension; E10.319 Type 1 diabetes mellitus with unspecified diabetic retinopathy without macular edema
CPT/HCPCS: 66984; V2632

== ENCOUNTER 2020-10-30 02:43 | Outpatient (CLI) | payer BC, SELFPAY ==
[2020-10-30 12:31] LABS: Hemoglobin A1C 8.5 % (<5.7)
[2020-10-30 12:40] LABS: ALT 42 U/L (16-63); AST 27 U/L (15-37); Albumin 3.9 g/dL (3.4-5.0); Alkaline Phosphatase 152 U/L (46-116); Anion Gap 9.8 mmol/L (3-11); BUN 21 mg/dL (7-18); Bilirubin, Total 1.3 mg/dL (0.2-1.0); CO2 25.2 mmol/L (21.0-32.0); CREATININE 1.2 mg/dL (0.70-1.30); Calcium 8.9 mg/dL (8.5-10.1); Calculated LDL 55 mg/dL (<100); Chloride 103 mmol/L (98-107); Cholesterol 118 mg/dL (<200); Estimated GFR 59.51 (mL/min/1.73m2); Glucose 209 mg/dL (74-106); HDL Cholesterol 43 mg/dL (40-60); Potassium 4.8 mmol/L (3.5-5.1); Sodium 138 mmol/L (136-145); Total Protein 6.8 g/dL (6.4-8.2); Triglyceride 102 mg/dL (<150)
== END 2020-10-30 02:44 | disposition home or self-care (01) ==
PROVIDERS: PCP Family Medicine; Visit Provider Family Medicine
DX: I10 Essential (primary) hypertension (principal); E11.9 Type 2 diabetes mellitus without complications
CPT/HCPCS: 36415; 80053; 80061; 83036

== ENCOUNTER 2021-02-03 01:38 | Outpatient (CLI) | payer BC, SELFPAY ==
[2021-02-03 11:36] LABS: Hemoglobin A1C 8.4 % (<5.7)
== END 2021-02-03 01:39 | disposition home or self-care (01) ==
LOC: LBO 01:38
PROVIDERS: PCP Family Medicine; Visit Provider Family Medicine
DX: E11.9 Type 2 diabetes mellitus without complications (principal)
CPT/HCPCS: 36415; 83036

== ENCOUNTER 2021-11-15 15:16 | Outpatient (REF) | payer BC, SELFPAY ==
[2021-11-15 15:03] LABS: Bilirubin Negative (Negative); Blood Large (Negative); Clarity Cloudy (Clear); Glucose Negative (Negative); Ketones Negative (Negative); Leukocyte Esterase Large (Negative); Nitrite Positive (Negative); Urobilinogen 0.2 EU/dL (Up TO 0.2); pH 5.5 (5-8)
[2021-11-15 15:10] LABS: Bacteria Few HPF (Negative); C & S Indicated? Yes; Crystals Negative HPF (Negative); Epithelial Cells Few HPF (Negative); Mucus Trace (Negative); RBC 20-50 HPF (0-2); WBC >50 HPF (0-5)
[2021-11-15 15:38] LABS: COMMENT (LAB VIEW ONLY) 67.82 mg/dL
[2021-11-15 15:42] LABS: Microalb ug/mg Crea 272.9 ug/mg Cr
== END 2021-11-15 15:17 | disposition home or self-care (01) ==
LOC: LBN 15:16
PROVIDERS: PCP Family Medicine; Visit Provider Family Medicine
DX: R35.0 Frequency of micturition (principal)
CPT/HCPCS: 87077; 81003; 81015; 82043; 82570; 87086; 87186

== ENCOUNTER 2021-11-30 15:09 | Outpatient (REF) | payer BC, SELFPAY ==
[2021-11-30 14:08] LABS: Bilirubin Negative (Negative); Blood Trace-intact (Negative); Clarity Cloudy (Clear); Glucose 250 mg/dL (Negative); Ketones Negative (Negative); Leukocyte Esterase Small (Negative); Nitrite Negative (Negative); Urobilinogen 0.2 EU/dL (Up TO 0.2); pH 5.5 (5-8)
[2021-11-30 14:16] LABS: Bacteria Many HPF (Negative); C & S Indicated? Yes; Casts Negative LPF (Negative); Crystals Negative HPF (Negative); Epithelial Cells Rare HPF (Negative); Mucus Negative (Negative); Other Cells Negative (Negative); WBC 20-50 HPF (0-5)
== END 2021-11-30 15:10 | disposition home or self-care (01) ==
LOC: LBN 15:09
PROVIDERS: PCP Family Medicine; Visit Provider Family Medicine
DX: Z87.440 Personal history of urinary (tract) infections (principal)
CPT/HCPCS: 87077; 81003; 81015; 87086; 87186

== ENCOUNTER 2021-12-29 16:52 | Outpatient (REF) | payer BC, SELFPAY ==
[2021-12-29 21:05] LABS: Bilirubin Negative (Negative); Blood Negative (Negative); Clarity Clear (Clear); Glucose 500 mg/dL (Negative); Ketones Negative (Negative); Leukocyte Esterase Negative (Negative); Nitrite Negative (Negative); Specific Gravity 1.025 (1.005-1.025); Urobilinogen 0.2 EU/dL (Up TO 0.2); pH 5.5 (5-8)
[2021-12-29 21:30] LABS: Bacteria Rare HPF (Negative); Epithelial Cells Rare HPF (Negative); Other Cells Rare Transitional (Negative); RBC 0-2 HPF (0-2)
[2021-12-29 21:31] LABS: C & S Indicated? No; Crystals Negative HPF (Negative); Mucus Negative (Negative)
== END 2021-12-29 16:53 | disposition home or self-care (01) ==
LOC: LBN 16:52
PROVIDERS: PCP Family Medicine; Visit Provider Family Medicine
DX: N39.0 Urinary tract infection, site not specified (principal)
CPT/HCPCS: 81003; 81015

== ENCOUNTER 2022-06-06 02:28 | Outpatient (CLI) | payer BC, SELFPAY ==
[2022-06-06 07:58] LABS: ALT 39 U/L (16-63); AST 24 U/L (15-37); Albumin 3.6 g/dL (3.4-5.0); Alkaline Phosphatase 149 U/L (46-116); Anion Gap 9.3 mmol/L (3-11); BUN 19 mg/dL (7-18); Bilirubin, Total 1.4 mg/dL (0.2-1.0); CO2 28.7 mmol/L (21.0-32.0); CREATININE 1.3 mg/dL (0.70-1.30); Calcium 8.9 mg/dL (8.5-10.1); Calculated LDL 52 mg/dL (<100); Chloride 104 mmol/L (98-107); Cholesterol 116 mg/dL (<200); Estimated GFR 58.01 (mL/min/1.73m2); Glucose 126 mg/dL (74-106); HDL Cholesterol 44 mg/dL (40-60); Potassium 4.2 mmol/L (3.5-5.1); Sodium 142 mmol/L (136-145); Total Protein 7.2 g/dL (6.4-8.2); Triglyceride 104 mg/dL (<150)
[2022-06-06 08:15] LABS: COMMENT (LAB VIEW ONLY) 92.33 mg/dL
[2022-06-06 08:23] LABS: Microalb ug/mg Crea 118.8 ug/mg Cr
== END 2022-06-06 02:29 | disposition home or self-care (01) ==
PROVIDERS: PCP Family Medicine; Visit Provider Family Medicine
DX: E10.65 Type 1 diabetes mellitus with hyperglycemia (principal); E10.8 Type 1 diabetes mellitus with unspecified complications; E11.9 Type 2 diabetes mellitus without complications
CPT/HCPCS: 36415; 80053; 80061; 82043; 82570

== ENCOUNTER 2022-12-20 02:42 | Outpatient (CLI) | payer OTHER, SELFPAY ==
[2022-12-20 12:40] LABS: ALT 30 U/L (16-63); AST 22 U/L (15-37); Albumin 3.6 g/dL (3.4-5.0); Alkaline Phosphatase 163 U/L (46-116); Anion Gap 10.1 mmol/L (3-11); BUN 18 mg/dL (7-18); Bilirubin, Total 0.8 mg/dL (0.2-1.0); CO2 25.9 mmol/L (21.0-32.0); CREATININE 1.2 mg/dL (0.70-1.30); Calculated LDL 50 mg/dL (<100); Chloride 106 mmol/L (98-107); Cholesterol 112 mg/dL (<200); Estimated GFR 63.46 (mL/min/1.73m2); Glucose 224 mg/dL (74-106); HDL Cholesterol 49 mg/dL (40-60); Potassium 4.4 mmol/L (3.5-5.1); Sodium 142 mmol/L (136-145); Total Protein 6.6 g/dL (6.4-8.2); Triglyceride 67 mg/dL (<150)
[2022-12-20 13:00] LABS: FREE T4 0.76 ng/dL (0.76-1.46)
== END 2022-12-20 02:43 | disposition home or self-care (01) ==
PROVIDERS: PCP Family Medicine; Visit Provider Family Medicine
DX: E10.51 Type 1 diabetes mellitus with diabetic peripheral angiopathy without gangrene (principal); I10 Essential (primary) hypertension
CPT/HCPCS: 36415; 80053; 80061; 84439; 84443

== ENCOUNTER 2022-12-20 22:01 | Outpatient (REF) | payer MEDICARE, SELFPAY ==
[2022-12-20 22:34] LABS: COMMENT (LAB VIEW ONLY) 87.07 mg/dL
== END 2022-12-20 22:02 | disposition home or self-care (01) ==
LOC: LBN 22:01
PROVIDERS: PCP Family Medicine; Visit Provider Family Medicine
DX: E10.51 Type 1 diabetes mellitus with diabetic peripheral angiopathy without gangrene (principal); I10 Essential (primary) hypertension
CPT/HCPCS: 82043; 82570

== ENCOUNTER 2023-04-27 03:53 | Outpatient (CLI) | payer MEDICARE, SELFPAY ==
[2023-04-27 13:03] LABS: ALT 28 U/L (16-63); AST 25 U/L (15-37); Albumin 3.6 g/dL (3.4-5.0); Alkaline Phosphatase 154 U/L (46-116); Anion Gap 8.4 mmol/L (3-11); BUN 27 mg/dL (7-18); Bilirubin, Total 1.1 mg/dL (0.2-1.0); CO2 26.6 mmol/L (21.0-32.0); CREATININE 1.5 mg/dL (0.70-1.30); Calcium 9.1 mg/dL (8.5-10.1); Chloride 104 mmol/L (98-107); Estimated GFR 48.55 (mL/min/1.73m2); Glucose 254 mg/dL (74-106); Sodium 139 mmol/L (136-145); TSH (W/Ref FT4) 2.51 uIU/mL (0.36-3.74); Total Protein 6.7 g/dL (6.4-8.2)
[2023-04-27 13:27] LABS: COMMENT (LAB VIEW ONLY) 120.89 mg/dL
[2023-04-27 13:28] LABS: Microalb ug/mg Crea 199.4 ug/mg Cr
[2023-04-27 14:15] LABS: Hemoglobin A1C 9.7 % (<5.7)
== END 2023-04-27 03:54 | disposition home or self-care (01) ==
LOC: LOS 03:53
PROVIDERS: PCP Family Medicine; Visit Provider Family Medicine
DX: I10 Essential (primary) hypertension (principal); E11.9 Type 2 diabetes mellitus without complications; E03.9 Hypothyroidism, unspecified
CPT/HCPCS: 36415; 80053; 82043; 82570; 83036; 84443

== ENCOUNTER 2023-05-18 07:53 | Outpatient (RCR) | payer MEDICARE, SELFPAY ==
--- NOTE | 2023-05-18 09:45 | HOLTER_ITS ---
APPROVED REPORT Conclusion This is a 48 Holter monitor rhythm throughout is sinus. Average heart rate is 62. Minimum heart rate during sleep was in the mi d 20s. Maximum heart rate was 97 There were rare ventricular ectopic beats There were occasional atrial premature beats. There were several self limited atrial runs, longest of which was 5 beats in duration There was no atrial fibrillation, no high-grade AV block, no pauses greater than 3 seconds No symptoms were reported
== END 2023-05-21 23:59 | disposition home or self-care (01) ==
LOC: CARDOPNVT 07:53
PROVIDERS: PCP Family Medicine; Visit Provider Internal Medicine Cardiovascular Disease
DX: R00.1 Bradycardia, unspecified (principal)
CPT/HCPCS: 93227; 93225

== ENCOUNTER 2023-05-22 14:16 | Outpatient (RCR) | payer MEDICARE, SELFPAY | END 2023-06-20 23:59 | disposition home or self-care (01) | LOC: CARDOPNVT 14:16 | PROVIDERS: PCP Family Medicine; Visit Provider Family Medicine | DX: R00.1 Bradycardia, unspecified (principal) | CPT/HCPCS: 93227; 93226 ==

== ENCOUNTER → 2023-06-12 11:00 | Outpatient (BNVA) | payer MEDICARE, SELFPAY | PROVIDERS: PCP Family Medicine; Referring Provider Family Medicine; Visit Provider Podiatrist | CPT/HCPCS: 11721 ==

== ENCOUNTER 2024-05-06 08:38 | Outpatient (CLI) | payer OTHER, SELFPAY ==
[2024-05-06 13:05] LABS: ALT 26 U/L (16-63); AST 23 U/L (15-37); Albumin 3.9 g/dL (3.4-5.0); Alkaline Phosphatase 164 U/L (46-116); Anion Gap 8.1 mmol/L (3-11); BUN 20 mg/dL (7-18); Bilirubin, Total 0.9 mg/dL (0.2-1.0); CO2 27.9 mmol/L (21.0-32.0); CREATININE 1.3 mg/dL (0.70-1.30); Calcium 9.3 mg/dL (8.5-10.1); Calculated LDL 52 mg/dL (<100); Chloride 106 mmol/L (98-107); Cholesterol 118 mg/dL (<200); Estimated GFR 57.29 (mL/min/1.73m2); Glucose 148 mg/dL (74-106); HDL Cholesterol 49 mg/dL (>or=40); Potassium 5.1 mmol/L (3.5-5.1); Sodium 142 mmol/L (136-145); TSH (W/Ref FT4) 2.65 uIU/mL (0.36-3.74); Total Protein 6.8 g/dL (6.4-8.2); Triglyceride 88 mg/dL (<150); Vitamin B12 381 pg/mL (193-986)
[2024-05-06 18:53] LABS: COMMENT (LAB VIEW ONLY) 96.45 mg/dL
[2024-05-06 18:54] LABS: Microalb ug/mg Crea 373.7 ug/mg Cr
== END 2024-05-06 08:39 | disposition home or self-care (01) ==
LOC: LOS 08:39 → LBN 17:29
PROVIDERS: PCP Family Medicine; Referring Provider Family Medicine; Visit Provider Family Medicine
DX: I10 Essential (primary) hypertension (principal); E03.9 Hypothyroidism, unspecified; G62.9 Polyneuropathy, unspecified; E11.9 Type 2 diabetes mellitus without complications
CPT/HCPCS: 36415; 80053; 80061; 82043; 82570; 82607; 84443

== ENCOUNTER → 2024-05-27 08:22 | Outpatient (BNVA) | payer OTHER, MEDICARE, SELFPAY | PROVIDERS: PCP Family Medicine; Referring Provider Family Medicine; Visit Provider Podiatrist | DX: E10.51 Type 1 diabetes mellitus with diabetic peripheral angiopathy without gangrene (principal); L60.3 Nail dystrophy; B35.1 Tinea unguium; R09.89 Other specified symptoms and signs involving the circulatory and respiratory systems; L65.9 Nonscarring hair loss, unspecified; R23.8 Other skin changes; R60.0 Localized edema; L60.2 Onychogryphosis; L60.8 Other nail disorders; L85.8 Other specified epidermal thickening | CPT/HCPCS: 11721 ==